=== PATIENT | female | born 1985 | race Caucasian/White ===

== ENCOUNTER 2016-10-02 14:49 | Emergency (ER) | payer OTHER | END 2016-10-02 17:05 | disposition home or self-care (01) | LOC: ER 14:49 | DX: H66.91 Otitis media, unspecified, right ear (principal); H92.01 Otalgia, right ear; F17.210 Nicotine dependence, cigarettes, uncomplicated; Z79.899 Other long term (current) drug therapy | CPT/HCPCS: 99070; 99282 ==